=== PATIENT | female | born 1955 | race Caucasian/White ===

== ENCOUNTER 2018-07-25 18:26 | Emergency (ER) | payer SELFPAY ==
[2018-07-25 19:12] VITALS: BP 151/94
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
[2018-07-25] MEDS ORDERED: Ketorolac INJ* 30 MG/ML 1 ML VIAL IM ONE (20:45)
== END 2018-07-25 21:32 | disposition home or self-care (01) ==
LOC: UCCORT 18:26
DX: S16.1XXA Strain of muscle, fascia and tendon at neck level, initial encounter (principal); G44.309 Post-traumatic headache, unspecified, not intractable; Z91.09 Other allergy status, other than to drugs and biological substances; F17.290 Nicotine dependence, other tobacco product, uncomplicated; V44.5XXA Car driver injured in collision with heavy transport vehicle or bus in traffic accident, initial encounter; Y92.9 Unspecified place or not applicable
CPT/HCPCS: 70450; 96372; 99201; G0463; J1885